=== PATIENT | female | born 1960 | race Caucasian/White ===

== ENCOUNTER 2018-12-20 12:45 | Outpatient (CLI) | payer BC ==
--- NOTE | 2018-12-21 09:29 | XRAY Report ---
Reason: CARPAL TUNNEL SYNDROME Procedure Date: 12/20/2018 Accession Number: [id number] / [id number] Procedure: XR - Forearm RT CPT Code: FULL RESULT: EXAM: RIGHT FOREARM RADIOGRAPHY 2 VIEWS EXAM DATE: 12/20/2018. CLINICAL HISTORY: Carpal tunnel syndrome. COMPARISON: None. TECHNIQUE: Frontal and lateral views. FINDINGS: Bones: No fracture or other abnormality. Joints: The wrist and elbow appear normal. No elbow joint effusion. Soft Tissues: Normal. IMPRESSION: Normal right forearm radiography. RADIA
== END 2018-12-20 12:46 | disposition home or self-care (01) ==
LOC: DI 12:45
PROVIDERS: ATTEND Family Medicine
DX: G56.00 Carpal tunnel syndrome, unspecified upper limb (principal)

== ENCOUNTER 2019-02-24 07:09 | Outpatient (CLI) | payer BC ==
--- NOTE | 2019-02-24 21:32 | MRI Report ---
Reason: ELBOW JOINT PAIN RT Procedure Date: 02/24/2019 Accession Number: [id number] / [id number] Procedure: MRI - Elbow RT W/O CPT Code: Final Report FULL RESULT: EXAM: RIGHT ELBOW MRI WITHOUT CONTRAST EXAM DATE: 02/24/2019 08:20 AM. CLINICAL HISTORY: Elbow joint pain right. COMPARISON: FOREARM RT 12/20/2018 1:16 PM. TECHNIQUE: Multiplanar, multisequence T1-weighted and fluid-sensitive sequences of the elbow without contrast. Other: None. FINDINGS: Bones and articular surfaces: No significant elbow joint effusion. Small marginal osteophyte formation at the coronoid process of the proximal ulna. Tiny focus of subchondral edema or subchondral cyst formation within the proximal ulna at the lateral margin of the ulnohumeral articulation. No osteochondral lesions. No significant articular cartilage defects are seen. Trace amount of marrow edema adjacent to the common extensor origin. Marrow signal otherwise appears within normal limits. Musculotendinous structures: Small amount of increased T2 signal and tiny fluid signal focus associated with the radial insertion of the biceps tendon consistent with mild insertional tendinosis. The brachialis and triceps insertions appear normal. Flexor pronator origin appears intact. Increased T2 signal and thickening at the common extensor origin. Slight degree of adjacent subcortical marrow edema. Small focus of fluid signal within the substance of the common extensor origin consistent with small focus of partial tear. No muscle atrophy or fatty replacement. Ligaments: The ulnar collateral, radial collateral and lateral ulnar collateral ligaments appear intact. Ulnar nerve: Normal course, signal and morphology. IMPRESSION: 1. Moderate tendinosis and low-grade partial tear at the common extensor origin. 2. Mild tendinosis at the biceps insertion. 3. Minimal ulnohumeral osteoarthritis. RADIA
== END 2019-02-24 07:10 | disposition home or self-care (01) ==
LOC: DI 07:09
PROVIDERS: ATTEND Orthopaedic Surgery Sports Medicine
DX: S56.511A Strain of other extensor muscle, fascia and tendon at forearm level, right arm, initial encounter (principal); M19.021 Primary osteoarthritis, right elbow

== ENCOUNTER 2020-10-23 08:35 | Outpatient (CLI) | payer BC, OTHER ==
--- NOTE | 2020-10-23 09:44 | XRAY Report ---
PROCEDURE: Knee 3 View LT INDICATIONS: CONTUSION OF LEFT KNEE TECHNIQUE: 3 views of the left knee(s) were acquired. COMPARISON: None. FINDINGS: Bones: No fractures or dislocations. No suspicious bony lesions. Soft tissues: No joint effusion. No suspicious soft tissue calcifications. IMPRESSION: No trauma found. No effusion or loose body seen. Reviewed by: Jeb Rivas MD on 10/23/2020 9:42 AM PDT Approved by: Jeb Rivas MD on 10/23/2020 9:42 AM PDT Station ID: [id number]
== END 2020-10-23 08:36 | disposition home or self-care (01) ==
LOC: DI.S 08:35
PROVIDERS: ATTEND Physician Assistant Medical
DX: S80.02XA Contusion of left knee, initial encounter (principal)

== ENCOUNTER 2021-06-15 07:26 | Outpatient (CLI) | payer MEDICAID ==
[2021-06-15 08:03] LABS: BASOPHILS % (AUTO) 0.8 %; EOSINOPHILS # (AUTO) 0.2 10^3/uL (0.0-0.7); EOSINOPHILS % (AUTO) 4.1 %; HCT - HEMATOCRIT 41.3 % (37.0-47.0); HGB - HEMOGLOBIN 13.7 g/dL (12.0-16.0); LYMPHOCYTES # (AUTO) 1.7 10^3/uL (1.5-3.5); LYMPHOCYTES % (AUTO) 35.1 %; MEAN CORPUSCULAR HGB CONC 33.2 g/dL (32.0-36.0); MEAN CORPUSCULAR VOLUME 87.5 fL (81.0-99.0); MEAN PLATELET VOLUME 9.9 fL (7.9-10.8); MONOCYTES # (AUTO) 0.7 10^3/uL (0.0-1.0); MONOCYTES % (AUTO) 13.3 %; NEUTROPHILS # (AUTO) 2.3 10^3/uL (1.5-6.6); NEUTROPHILS % (AUTO) 46.5 %; PLT - PLATELET COUNT 237 10^3/uL (130-450); RED BLOOD COUNT 4.72 10^6/uL (4.20-5.40); RED CELL DISTRIBUTION WIDTH 13.2 % (12.0-15.0); WHITE BLOOD COUNT 4.9 x10^3/uL (4.8-10.8)
[2021-06-15 08:34] LABS: % IRON SATURATION 14 % (20-50); ALBUMIN/GLOBULIN RATIO 1.1 (1.0-2.2); ALKALINE PHOSPHATASE 118 IU/L (42-121); ALT ALANINE AMINOTRANSFERASE 20 IU/L (10-60); AST ASPARTATE AMINOTRANSFERASE 24 IU/L (10-42); BILIRUBIN,TOTAL 0.9 mg/dL (0.2-1.0); BUN - BLOOD UREA NITROGEN 20 mg/dL (6-20); CALCIUM 9.1 mg/dL (8.5-10.3); CARBON DIOXIDE - CO2 22 mmol/L (21-32); CHLORIDE 102 mmol/L (101-111); CHOL/HDL RATIO 2.9 (<4.4); CHOLESTEROL 193 mg/dL; CREATININE 1.1 mg/dL (0.4-1.0); GFR - MDRD 51 (>89); GLUCOSE 98 mg/dL (70-100); HDL CHOLESTEROL 66 mg/dL; IRON 67 ug/dL (28-170); LDL CHOLESTEROL,CALCULATED 111 mg/dL; LDL/HDL RATIO 1.7 (<4.4); SODIUM 135 mmol/L (135-145); TOTAL IRON BINDING CAPACITY 480 ug/dL (250-450); TOTAL PROTEIN 7.8 g/dL (6.7-8.2); TRANSFERRIN 343 mg/dL (192-382); TRIGLYCERIDES 78 mg/dL; VLDL CHOLESTEROL 16 mg/dL
[2021-06-15 08:41] LABS: THYROID STIMULATING HORMONE 9.86 uIU/mL (0.34-5.60)
[2021-06-15 08:48] LABS: FERRITIN 12.3 ng/mL (11.0-306.8)
[2021-06-15 08:52] LABS: FOLATE 10.26 ng/mL (5.90 - >24.8)
[2021-06-15 09:58] LABS: ESTIMATED AVERAGE GLUCOSE 117 mg/dL (70-100); HEMOGLOBIN A1c% 5.7 % (4.27-6.07)
== END 2021-06-15 07:27 | disposition home or self-care (01) ==
LOC: LAB 07:26
PROVIDERS: ATTEND Surgery
DX: K91.2 Postsurgical malabsorption, not elsewhere classified (principal)
CPT/HCPCS: 36415; 80053; 80061; 82306; 82607; 82728; 82746; 83036; 83540; 83721; 83970; 84425; 84443; 84466; 84590; 84630; 85025

== ENCOUNTER 2021-07-17 09:30 | Outpatient (CLI) | payer MEDICAID | END 2021-07-17 23:59 | disposition home or self-care (01) | LOC: LAB.R 09:30 | PROVIDERS: ATTEND Internal Medicine | DX: Z00.00 Encounter for general adult medical examination without abnormal findings (principal); E03.9 Hypothyroidism, unspecified | CPT/HCPCS: 84439 ==

== ENCOUNTER 2021-09-08 12:54 | Outpatient (CLI) | payer MEDICAID ==
--- NOTE | 2021-09-09 13:39 | Mammography Report ---
BILATERAL DIGITAL SCREENING MAMMOGRAM 3D/2D: 09/08/2021 CLINICAL: Routine screening. No prior exams were available for comparison. There are scattered fibroglandular elements in both br easts. No significant masses, calcifications, or other findings are seen in either breast. IMPRESSION: NEGATIVE There is no mammographic evidence of malignancy. A 1 year screening mammogram is recommended. This exam was interpreted at Station ID: [id number]. NOTE: For mammograms, a report in lay terms will be sent to the patient. Approximately 15% of breast malignancies will not be visualized mammographically. In the management of a palpable breast mass, a negative mammogram must not discourage biopsy of a clinically suspicious lesion. Electronically Signed By: Mildred alfaro/oscar:09/08/2021 17:48:48 ACR BI-RADS Category 1: Negative 3341F PARENCHYMAL PATTERN: (A) - The breast(s) demonstrate(s) scattered fibroglandular densities. BI-RADS CATEGORY: (1) - 1 RECOMMENDATION: (ANNUAL) - Recommend routine annual screening mammography. [id number] 1 year screening LATERALITY: (B)
== END 2021-09-08 12:55 | disposition home or self-care (01) ==
LOC: DI.S 12:54
PROVIDERS: ATTEND Internal Medicine
DX: Z12.31 Encounter for screening mammogram for malignant neoplasm of breast (principal)

== ENCOUNTER 2022-01-18 15:20 | Outpatient (CLI) | payer MEDICAID ==
--- NOTE | 2022-01-18 16:14 | XRAY Report ---
PROCEDURE: Foot 3 View LT INDICATIONS: PAIN IN LEFT FOOT TECHNIQUE: 3 views of the foot were acquired. COMPARISON: None FINDINGS: Bones: Scattered mild arthrosis. Possible minimally displaced fracture of the fifth toe phalanx. This is seen on lateral view. No dislocation. Large os peroneum. Small calcaneal enthesophytes. Soft tissues: No tibiotalar joint effusion. Achilles tendon appears normal. IMPRESSION: Possible minimally displaced fracture of the fifth toe phalanx, seen on lateral view. Correlate with point tenderness. Consider cross-sectional imaging if there is concern for other occult injury. Reviewed by: Murali Rivera MD on 01/18/2022 4:13 PM PDT Approved by: Murali Rivera MD on 01/18/2022 4:13 PM PDT Station ID: [id number]
== END 2022-01-18 15:21 | disposition home or self-care (01) ==
LOC: DI.S 15:20
PROVIDERS: ATTEND Registered Nurse
DX: M79.675 Pain in left toe(s) (principal); R93.6 Abnormal findings on diagnostic imaging of limbs

== ENCOUNTER 2022-01-25 10:40 | Outpatient (CLI) | payer MEDICAID | END 2022-01-25 10:41 | disposition home or self-care (01) | LOC: LAB 10:40 | PROVIDERS: ATTEND Internal Medicine | DX: E03.9 Hypothyroidism, unspecified (principal) | CPT/HCPCS: 36415; 84443 ==

== ENCOUNTER 2022-02-13 07:18 | Outpatient (CLI) | payer MEDICAID ==
[~2022-02-13 07:18] MED LIST: GADOBUTROL 15 MMOL/15 ML VIAL ONE
[2022-02-13] MEDS ORDERED: GADOBUTROL 15 MMOL/15 ML VIAL IVP ONE (08:19)
--- NOTE | 2022-02-14 20:26 | MRI Report ---
PROCEDURE: BRAIN W/WO INDICATIONS: VERTIGO TECHNIQUE: Noncontrast axial T1 spin echo, axial T2 fast spin echo, sagittal and axial FLAIR, coronal T2 fast sp in echo, axial gradient echo, axial diffusion and ADC through the brain. After the administration of contrast, axial and coronal T1 spin echo with fat saturation through the brain. COMPARISON: None. FINDINGS: Image quality: Excellent. CSF spaces: Basal cisterns are patent. No extra-axial fluid collections. Ventricles are normal in size and shape. Brain: No midline shift. No intracranial bleeds or masses. No abnormal intracranial enhancement. There is cerebral volume loss for age. There is periventricular white matter chronic small vessel is chemic change. The brainstem appears normal. Diffusion-weighted images demonstrate no acute ischemi c insults. No chronic ischemic insults. Normal intravascular flow voids are present. Skull and face: Calvarial marrow is normal in signal. Orbits appear normal. Sinuses: Sinuses and mastoids appear clear. IMPRESSION: No acute intracranial abnormality, intracranial mass, or other significant finding to ex plain symptoms. Reviewed by: Collin Vásquez MD on 02/14/2022 8:25 PM PDT Approved by: Collin Vásquez MD on 02/14/2022 8:25 PM PDT Station ID: [id number]
== END 2022-02-13 07:19 | disposition home or self-care (01) ==
LOC: DI 07:18
PROVIDERS: ATTEND Internal Medicine
DX: R42 Dizziness and giddiness (principal); H93.19 Tinnitus, unspecified ear
CPT/HCPCS: 70553; A9585

== ENCOUNTER 2022-08-27 07:32 | Outpatient (CLI) | payer MEDICAID ==
[2022-08-27 08:13] LABS: BASOPHILS % (AUTO) 0.7 %; EOSINOPHILS # (AUTO) 0.3 10^3/uL (0.0-0.7); EOSINOPHILS % (AUTO) 5.3 %; HCT - HEMATOCRIT 38.6 % (37.0-47.0); HGB - HEMOGLOBIN 12.3 g/dL (12.0-16.0); LYMPHOCYTES # (AUTO) 2.1 10^3/uL (1.5-3.5); MEAN CORPUSCULAR HEMOGLOBIN 28.4 pg (27.0-31.0); MEAN CORPUSCULAR HGB CONC 31.9 g/dL (32.0-36.0); MEAN CORPUSCULAR VOLUME 89.1 fL (81.0-99.0); MEAN PLATELET VOLUME 9.9 fL (7.9-10.8); MONOCYTES # (AUTO) 0.5 10^3/uL (0.0-1.0); NEUTROPHILS # (AUTO) 2.9 10^3/uL (1.5-6.6); NEUTROPHILS % (AUTO) 49.8 %; PLT - PLATELET COUNT 272 10^3/uL (130-450); RED BLOOD COUNT 4.33 10^6/uL (4.20-5.40); RED CELL DISTRIBUTION WIDTH 13.8 % (12.0-15.0); WHITE BLOOD COUNT 5.9 x10^3/uL (4.8-10.8)
[2022-08-27 08:32] LABS: ALBUMIN 3.8 g/dL (3.2-5.5); ALKALINE PHOSPHATASE 92 IU/L (42-121); ALT ALANINE AMINOTRANSFERASE 15 IU/L (10-60); AST ASPARTATE AMINOTRANSFERASE 17 IU/L (10-42); BILIRUBIN,TOTAL 0.9 mg/dL (0.2-1.0); BUN - BLOOD UREA NITROGEN 23 mg/dL (6-20); CALCIUM 9.1 mg/dL (8.5-10.3); CARBON DIOXIDE - CO2 22 mmol/L (21-32); CHLORIDE 108 mmol/L (101-111); CHOL/HDL RATIO 3.2 (<4.4); CHOLESTEROL 223 mg/dL; GFR - MDRD 57 (>89); GLUCOSE 100 mg/dL (70-100); HDL CHOLESTEROL 70 mg/dL; LDL CHOLESTEROL,CALCULATED 138 mg/dL; SODIUM 141 mmol/L (135-145); TOTAL PROTEIN 7.6 g/dL (6.7-8.2); TRIGLYCERIDES 76 mg/dL; VLDL CHOLESTEROL 15 mg/dL
[2022-08-27 08:42] LABS: THYROID STIMULATING HORMONE 5.09 uIU/mL (0.34-5.60)
[2022-08-27 12:30] LABS: ESTIMATED AVERAGE GLUCOSE 114 mg/dL (70-100); HEMOGLOBIN A1c% 5.6 % (4.27-6.07)
[2022-08-28 06:09] LABS: HCV AB Non Reactive (Non Reactive)
== END 2022-08-27 07:33 | disposition home or self-care (01) ==
LOC: LAB 07:32
PROVIDERS: ATTEND Internal Medicine
DX: Z01.818 Encounter for other preprocedural examination (principal); E03.9 Hypothyroidism, unspecified; H35.349 Macular cyst, hole, or pseudohole, unspecified eye; Z11.59 Encounter for screening for other viral diseases; Z79.899 Other long term (current) drug therapy
CPT/HCPCS: 36415; 80053; 80061; 82607; 83036; 83721; 84443; 85025; 86803

== ENCOUNTER 2022-09-13 14:02 | Outpatient (CLI) | payer MEDICAID ==
--- NOTE | 2022-09-14 11:31 | Mammography Report ---
BILATERAL DIGITAL SCREENING MAMMOGRAM 3D/2D: 09/13/2022 CLINICAL: Routine screening. Comparison is made to exams dated: 09/08/2021 mammogram - [facility] and 06/28/2017 [facility] - [facility]. There are scattered areas of fibroglandular density in both breasts (category b / 25%-50% glandular t issue). No significant masses, calcifications, or other findings are seen in either breast. There has been no significant interval change. IMPRESSION: NEGATIVE There is no mammographic evidence of malignancy. A 1 year screening mammogram is recommended. Based on the Tyrer Cuzick model (a risk assessment model) the patients lifetime risk is 9.2% and her 10 year risk is 3.7%. According to the ACR, ACS, and NCCN guidelines, an annual breast MRI exam lewis g with mammogram is recommended if the patients lifetime risk is 20% or greater. This exam was interpreted at Station ID: [id number]. NOTE: For mammograms, a report in lay terms will be sent to the patient. Approximately 15% of breast malignancies will not be visualized mammographically. In the management of a palpable breast mass, a negative mammogram must not discourage biopsy of a clinically suspicious lesion. Electronically Signed By: Marques johnson/oscar:09/13/2022 17:29:48 letter sent: No_Letter ACR BI-RADS Category 1: Negative 3341F PARENCHYMAL PATTERN: (A) - The breast(s) demonstrate(s) scattered fibroglandular densities. BI-RADS CATEGORY: (1) - 1 Mammogram [id number] 1 year screening LATERALITY: (B)
== END 2022-09-13 14:03 | disposition home or self-care (01) ==
LOC: DI 14:02
PROVIDERS: ATTEND Internal Medicine
DX: Z12.31 Encounter for screening mammogram for malignant neoplasm of breast (principal)

== ENCOUNTER 2023-02-03 08:44 | Outpatient (CLI) | payer MEDICAID ==
--- NOTE | 2023-02-03 13:39 | XRAY Report ---
PROCEDURE: Hips 2V BILAT INDICATIONS: BILATERAL HIP JOINT PAIN TECHNIQUE: Frontal view of the pelvis and lateral views of both hips acquired. COMPARISON: None. FINDINGS: Bones: No fractures or dislocations. Mild-moderate bilateral hip joint space narrowing. Soft tissues: No suspicious soft tissue calcifications. IMPRESSION: No acute bony abnormality. If there remains a high clinical concern for fracture, consider cross-sect ional imaging now. If pain persists, consider repeat x-ray in 10-14 days or cross-sectional imaging. Degenerative changes of both hips. Reviewed by: Sonido Ryan MD on 02/03/2023 1:38 PM PDT Approved by: Sonido Ryan MD on 02/03/2023 1:38 PM PDT Station ID: [id number]
--- NOTE | 2023-02-03 13:42 | XRAY Report ---
PROCEDURE: Lumbar Spine Complete INDICATIONS: DJD,LUMBAR SPIN TECHNIQUE: 4 views of the lumbar spine were acquired. COMPARISON: None. FINDINGS: Bones: 5 [id number] vertebrae are present. 3 mm anterolisthesis L3 on L4. Mild-moderate multil evel degenerative changes with disc height loss, endplate spurring, and facet arthropathy. Suspect at least mild multilevel bony foraminal narrowing on oblique views. No lumbar vertebral body compressio n fracture identified. Soft tissues: Overlying bowel gas pattern is normal. No suspicious soft tissue calcifications. IMPRESSION: Degenerative changes of the lumbar spine. Reviewed by: Sonido Ryan MD on 02/03/2023 1:40 PM PDT Approved by: Sonido Ryan MD on 02/03/2023 1:40 PM PDT Station ID: [id number]
== END 2023-02-03 08:45 | disposition home or self-care (01) ==
LOC: DI 08:44
PROVIDERS: ATTEND Nurse Practitioner
DX: M47.816 Spondylosis without myelopathy or radiculopathy, lumbar region (principal); M16.0 Bilateral primary osteoarthritis of hip

== ENCOUNTER 2023-02-09 09:37 | Outpatient (CLI) | payer MEDICAID ==
[2023-02-09 10:10] LABS: BASOPHILS % (AUTO) 0.4 %; EOSINOPHILS # (AUTO) 0.3 10^3/uL (0.0-0.7); EOSINOPHILS % (AUTO) 5.3 %; HCT - HEMATOCRIT 37.1 % (37.0-47.0); HGB - HEMOGLOBIN 11.8 g/dL (12.0-16.0); LYMPHOCYTES # (AUTO) 1.9 10^3/uL (1.5-3.5); LYMPHOCYTES % (AUTO) 33.9 %; MEAN CORPUSCULAR HGB CONC 31.8 g/dL (32.0-36.0); MEAN CORPUSCULAR VOLUME 87.9 fL (81.0-99.0); MEAN PLATELET VOLUME 9.7 fL (7.9-10.8); MONOCYTES # (AUTO) 0.6 10^3/uL (0.0-1.0); MONOCYTES % (AUTO) 11.4 %; NEUTROPHILS # (AUTO) 2.7 10^3/uL (1.5-6.6); NEUTROPHILS % (AUTO) 48.6 %; PLT - PLATELET COUNT 260 10^3/uL (130-450); RED BLOOD COUNT 4.22 10^6/uL (4.20-5.40); RED CELL DISTRIBUTION WIDTH 13.5 % (12.0-15.0); WHITE BLOOD COUNT 5.5 x10^3/uL (4.8-10.8)
[2023-02-09 10:29] LABS: % IRON SATURATION 11 % (20-50); ALBUMIN 3.9 g/dL (3.2-5.5); ALBUMIN/GLOBULIN RATIO 1.3 (1.0-2.2); ALKALINE PHOSPHATASE 119 IU/L (42-121); ALT ALANINE AMINOTRANSFERASE 10 IU/L (10-60); AST ASPARTATE AMINOTRANSFERASE 13 IU/L (10-42); BILIRUBIN,TOTAL 0.5 mg/dL (0.2-1.0); BUN - BLOOD UREA NITROGEN 22 mg/dL (6-20); CALCIUM 9.2 mg/dL (8.5-10.3); CARBON DIOXIDE - CO2 26 mmol/L (21-32); CHLORIDE 107 mmol/L (101-111); CHOL/HDL RATIO 3.9 (<4.4); CHOLESTEROL 232 mg/dL; GFR - MDRD 57 (>89); GLUCOSE 89 mg/dL (74-104); HDL CHOLESTEROL 59 mg/dL; IRON 54 ug/dL (50-212); LDL CHOLESTEROL,CALCULATED 147 mg/dL; LDL/HDL RATIO 2.5 (<4.4); POTASSIUM 4.2 mmol/L (3.5-4.5); SODIUM 139 mmol/L (135-145); TOTAL IRON BINDING CAPACITY 475 ug/dL (250-450); TOTAL PROTEIN 6.8 g/dL (6.4-8.9); TRANSFERRIN 339 mg/dL (203-362); TRIGLYCERIDES 130 mg/dL (48-352); VLDL CHOLESTEROL 26 mg/dL
[2023-02-09 10:40] LABS: THYROID STIMULATING HORMONE 3.43 uIU/mL (0.34-5.60)
[2023-02-09 10:48] LABS: FERRITIN 4.7 ng/mL (11.0-306.8)
[2023-02-09 11:39] LABS: ESTIMATED AVERAGE GLUCOSE 117 mg/dL (70-100); HEMOGLOBIN A1c% 5.7 % (4.27-6.07)
[2023-02-10 07:11] LABS: VITAMIN D 25-HYDROXY 21.4 ng/mL (30.0-100.0)
== END 2023-02-09 09:38 | disposition home or self-care (01) ==
LOC: LAB 09:37
PROVIDERS: ATTEND Nurse Practitioner
DX: I10 Essential (primary) hypertension (principal); Z13.220 Encounter for screening for lipoid disorders; Z98.84 Bariatric surgery status; E03.9 Hypothyroidism, unspecified; E66.01 Morbid (severe) obesity due to excess calories
CPT/HCPCS: 36415; 80053; 80061; 82306; 82607; 82728; 82746; 83036; 83540; 83721; 83970; 84425; 84439; 84443; 84466; 84590; 85025

== ENCOUNTER 2023-11-01 07:54 | Outpatient (CLI) | payer MEDICAID ==
--- NOTE | 2023-11-02 08:47 | Mammography Report ---
BILATERAL DIGITAL SCREENING MAMMOGRAM 3D/2D: 11/01/2023 CLINICAL: Routine screening. Comparison is made to exams dated: 09/13/2022 mammogram, 09/08/2021 mammogram - [facility], and 06/28/2017 mammogram - [facility]. There are scattered areas of fibroglandular density in both breasts (category b / 25%-50% glandular t issue). No significant masses, calcifications, or other findings are seen in either breast. There has been no significant interval change. IMPRESSION: NEGATIVE There is no mammographic evidence of malignancy. A 1 year screening mammogram is recommended. Based on the Tyrer Cuzick model (a risk assessment model) the patient's lifetime risk is 8.9% and her 10 year risk is 3.7%. According to the ACR, ACS, and NCCN guidelines, an annual breast MRI exam lewis g with mammogram is recommended if the patient's lifetime risk is 20% or greater. This exam was interpreted at Station ID: [id number]. NOTE: For mammograms, a report in lay terms will be sent to the patient. Approximately 15% of breast malignancies will not be visualized mammographically. In the management of a palpable breast mass, a negative mammogram must not discourage biopsy of a clinically suspicious lesion. Electronically Signed By: Marques johnson/oscar:11/01/2023 13:31:22 letter sent: No_Letter ACR BI-RADS Category 1: Negative 3341F PARENCHYMAL PATTERN: (A) - The breast(s) demonstrate(s) scattered fibroglandular densities. BI-RADS CATEGORY: (1) - 1 RECOMMENDATION: (ANNUAL) - Recommend routine annual screening mammography. [id number] 1 year screening LATERALITY: (B)
== END 2023-11-01 07:55 | disposition home or self-care (01) ==
LOC: DI 07:54
PROVIDERS: ATTEND Nurse Practitioner
DX: Z12.31 Encounter for screening mammogram for malignant neoplasm of breast (principal); R92.323 Mammographic fibroglandular density, bilateral breasts